=== PATIENT | female | born 1945 | race Asian ===

== ENCOUNTER 2020-10-13 16:56 | Emergency (ER) | payer OTHER ==
[~2020-10-13] VITALS: Ht 149.9 cm; Wt 65.8 kg
--- NOTE | 2020-10-13 17:17 | NUR ---
[facility]. TO ER BED 6. AAOX4. NOT IN RESP DISTRESS. AMBULATORY. BROUGHT IN FOR HYPERTENSION WHICH WAS REPORTED WITH SBP OF 250. UPON ASSESSING PT IS NOTED WITH BP 229/116. PER PT, HER BP IS HIGH BECAUSE SHE IS NERVOUS AND ANXIOUS. PT REPORTS NOT TAKING ANY MEDICATION FOR BP. SHE DENEIS ANY HEADACHE NOR CHEST PAIN. MD WAS AT THE BEDSIDE FOR EVAL. ORDERS RECEIVED. PT ON MONITOR
[2020-10-13] MEDS ORDERED: AMLODIPINE BESYLATE 5 MG TABLET ONE (17:21)
[2020-10-13] MEDS ORDERED: BENAZEPRIL HCL 10 MG TABLET ONE (17:22)
[2020-10-13] MEDS ORDERED: ASPI-1420 PO (17:29)
[2020-10-13] MEDS ORDERED: CHLO25TA2 PO (17:29)
[2020-10-13] MEDS ORDERED: BENAZEPRIL HCL 10 MG TABLET PO ONE (17:30)
[2020-10-13] MEDS ORDERED: AMLODIPINE BESYLATE 5 MG TABLET PO ONE (17:30)
[2020-10-13] MEDS ORDERED: MULT-447 PO (17:30)
[2020-10-13] MEDS ORDERED: LORAZEPAM 1 MG TABLET PO ONE (18:30)
[2020-10-13] MEDS ORDERED: BENA40TA67 PO (19:02)
[2020-10-13] MEDS ORDERED: AMLO-212 PO (19:02)
--- NOTE | 2020-10-13 19:09 | NUR ---
ATIVAN WAS NOT GIVEN D/T PATIENT IS GOING HOME BY TAKING THE BUS. NO ONE WILL BE ABLE TO UPHOLSTERY PARTS SORTER THE PT FROM THE HOSPITAL.
[2020-10-13 19:19] VITALS: BP 174/81
--- NOTE | 2020-10-13 19:21 | NUR ---
Patient discharged to home in stable condition. Written and verbal after care instructions given. Patient verbalizes understanding of instruction. Pt ambulatory with a steady gait
== END 2020-10-13 19:21 | disposition home or self-care (01) ==
LOC: ER 17:04
DX: I10 Essential (primary) hypertension (principal); E78.5 Hyperlipidemia, unspecified; Z88.2 Allergy status to sulfonamides; Z79.899 Other long term (current) drug therapy; Z79.82 Long term (current) use of aspirin